=== PATIENT | female | born 1965 | race Caucasian/White ===

== ENCOUNTER 2019-02-22 09:35 | Inpatient (IN) ==
[2019-02-22] MEDS ORDERED: ZOFRAN IV ONE (10:02)
[2019-02-22] MEDS ORDERED: MORPHINE IV ONE (10:02)
[2019-02-22] MEDS ORDERED: NS 1,000 ML IV ONE ×2 (10:02→13:41)
[2019-02-22] MEDS ORDERED: BENTYL IM ONE (10:02)
--- NOTE | 2019-02-22 10:09 | PROVIDER DOCUMENTATION ---
HPI-Abdominal Pain/GI Problem - General Chief Complaint: Abdominal Pain Stated Complaint: LT SIDE PAIN,DRY HEAVEING Time Seen by Provider: 02/22/19 09:43 Source: patient Allergies/Adverse Reactions: Patient Allergies Allergy/AdvReac Type Severity Reaction Status Date / Time No Known Allergies Allergy Verified 02/22/19 10:00 Home Medications: Home Medication List Medication Instructions Recorded Confirmed Last Taken Type NK [No Home Medications] 02/22/19 02/22/19 Unknown History - History of Present Illness-ABD Nature of Presenting Problems: Patient is a 53 yowf who complains of intermittent LUQ pain associated with n/v x 2 weeks that became constant 3 days ago. Emesis x 1 today. Denies fever, melena, diarrhea, or any other symptoms. She is non-toxic in appearance. Review of Systems - Adult - REVIEW OF SYSTEMS - ADULT Constitutional: reports: no symptoms reported. denies: chills, fever Eyes: reports: no symptoms reported Ears, Nose, Mouth & Throat: reports: no symptoms reported Cardiovascular: reports: no symptoms reported Respiratory: reports: no symptoms reported Gastrointestinal: reports: see HPI, abdominal pain, nausea, vomiting. denies: diarrhea, rectal bleeding Genitourinary: reports: no symptoms reported Musculoskeletal: reports: no symptoms reported Integumentary: reports: no symptoms reported Neurological: reports: no symptoms reported Psychiatric: reports: no symptoms reported Endocrine: reports: no symptoms reported Hematologic/Lymphatic: reports: no symptoms reported Allergic/Immunologic: reports: no symptoms reported All Other Systems: Reviewed and Negative Past History - Adult - PAST MEDICAL HISTORY-ADULT Review of Records: reports: Nursing Assessment Review, Medications Reviewed, Social history reviewed & non-contributory. Major Childhood Illnesses: reports: denies history Cardiovascular: reports: denies history Respiratory: reports: denies history Gastrointestinal: reports: denies history Obstetrical/Gynecological: reports: denies history Genitourinary: reports: denies history Musculoskeletal: reports: denies history Neurological: reports: denies history Psychiatric: reports: denies history Endocrine/Immune: reports: denies history Other Conditions: reports: denies history - PRIOR SURGERIES/PROCEDURES Surgical/Procedure History: reports: appendectomy - FAMILY HISTORY Family History: reviewed, not pertinent - SOCIAL HISTORY Smoking: cigarettes, greater than 1 pack/day Alcohol Use Frequency: occasionally Physical Exam-General - PHYSICAL EXAM-ADULT Initial Vital Signs Reviewed: Yes - CONSTITUTIONAL General Appearance: alert, no apparent distress. negative: lethargic, slow to respond - EYES Eyes: PERRL/EOMI, pink conjunctivae - HEAD, EARS, NOSE, MOUTH & THROAT HENMT: normocephalic/atraumatic, moist mucous membranes - NECK Neck: full range of motion, supple, normal inspection - RESPIRATORY Respiratory: chest non-tender, lungs clear, normal breath sounds, no pleuratic chest pain, no respiratory distress, no accessory muscle use - CARDIOVASCULAR Cardiovascular: normal peripheral pulses, regular rate, rhythm, no gallop, no murmur - GASTROINTESTINAL (ABDOMEN) Abdominal Exam: normal bowel sounds, soft, no organomegaly, no pulsatile mass, tenderness (RUQ, epigastric region, LUQ). negative: distended, guarding, rigid, rebound, hernia, mass - MUSCULOSKELETAL Back Exam: normal inspection, no CVA tenderness Extremity: normal range of motion, non-tender, normal gait, normal inspection - SKIN Integumentary: normal color, warm/dry. negative: cyanosis, diaphoresis, jaundice, mottled, pallor - NEUROLOGIC Neurologic: grossly normal, no motor/sensory deficits - PSYCHIATRIC Psych/Mental Status: normal mood/affect, normal thought content, normal thought process, oriented x 3 Progress - PLAN OF CARE/RESULTS Progress/Plan/Lab Results: Vital Signs - 8 hr 02/22/19 09:38 Temperature 98.1 F Pulse Rate 89 Respiratory Rate 19 Blood Pressure 182/87 O2 Sat by Pulse Oximetry 98 Orders Category Date Time Status Nursing- Obtain EKG ONCE Care 02/22/19 10:02 Active AMYLASE [CHEM] Stat Lab 02/22/19 10:02 Uncollected CBC WITH DIFF [HEME] Stat Lab 02/22/19 10:02 Ordered COMPREHENSIVE METABOLIC PANEL [CHEM] Stat Lab 02/22/19 10:02 Uncollected LIPASE [CHEM] Stat Lab 02/22/19 10:02 Uncollected TROPONIN T Stat Lab 02/22/19 10:02 Ordered UA NIMS W/REFLEX CULT [URINALYSIS] Stat Lab 02/22/19 10:04 Uncollected 0.9% Sodium Chloride Inj [Ns] 1,000 ml Med 02/22/19 10:02 Active IV 999 mls/hr Dicyclomine [Bentyl] Med 02/22/19 10:02 Discontinued 20 mg IM NOW ONE Morphine Med 02/22/19 10:02 Discontinued 4 mg IV NOW ONE Ondansetron [Zofran] Med 02/22/19 10:02 Discontinued 4 mg IV NOW ONE EKG [EKG] Stat Ther 02/22/19 10:02 Ordered 1340- Dr. Mandel paged. 1418- Dr. Mandel re-paged. 1435- Spoke with staff member at Dr. Mandel's office who took message and states he is with a pt in clinic and will call back. 1645- Charge nurse aware that I have not heard back from Dr. Mandel. Discussed case with Dr. Qulies who does not recommend admission to [facility] since pt is otherwise healthy and not on any home medications, will await phone call. Pt denies any needs at this time and states pain is controlled. She is in agreement with admission plan. 1750- Admitting [facility] paged. Result Diagrams: 02/22/19 10:35 02/22/19 10:35 - CT/MRI 1 CT Study: Abdomen, Pelvis (IMPRESSION: 1.Outpouching at the posterior aspect of the duodenal bulb with mild inflammatory stranding and adjacent mild lymphadenopathy. A perforated walled off duodenal ulcer cannot be excluded. Please see the above discussion. 2.Prominent distention of the urinary bladder with mild prominence of the ureters and a slightly prominent right renal pelvis. Correlate clinically to exclude urinary stasis. 3.Other incidental/nonacute findings detailed above. Electronically signed by Rachid Garcia 02/22/2019 1:04 PM) - CONSULTS/PCP/HOSPITALIST Notification #1 *Consult/PCP/Hospitalist*: Dr. Mandel Time Discussed: 17:49 Reason/Comments: duodenal ulcer- possible perforated Consult Disposition: other ([employer] Reliner states he already saw pt in the ED. States to admit to [facility], keep pt NPO, place on PPI drip and Zosyn and he will perform an upper GI tomorrow.) #2 Consult: HEIDY Campoevrde [employer]W OPERATOR Time Discussed: 18:04 Reason/Comments: LUQ pain, duodenal ulcer Consult Disposition: Admit Departure - Departure Date of Disposition Decision: 02/22/19 Time of Disposition Decision: 13:00 DIAGNOSIS: Abdominal pain Qualifiers: Abdominal location: left upper quadrant Qualified Code(s): R10.12 - Left upper quadrant pain Disposition: ADMITTED INPATIENT 09 Certified Medical Emergency: Emergent Condition: Stable Referrals and Follow-Ups: None,PCP [Primary Care Provider] - - Critical Care Note This patient required my direct & personal management of CC.: No Attestation - Physician/ HAYDE Attestation Patient care was provided by Advanced Practice Provider:: Yes Advanced Practice Provider:: Allison Florence Advanced Practice Provider documentation review:: The Mid-level provider documentation, treatment plan and medical decision making was reviewed by the physician who agrees with all treatment and medical decision making by the MLP. The physician spent face to face time with patient:: No Advanced Practice Provider documentation review:: Supervising physician onsite and consulted in the evaluation and care of this patient. The physician did not have a face to face encounter with the patient.
--- NOTE | 2019-02-22 10:17 | EKG Report ---
Test Performed on : 02/22/2019 10:12:57 AM Test Reason : LUQ pain Blood Pressure : / mmHG Vent. Rate : 082 BPM Atrial Rate : 082 BPM P-R Int : 128 ms QRS Dur : 084 ms QT Int : 382 ms P-R-T Axes : 035 077 056 degrees QTc Int : 446 ms Normal sinus rhythm. Normal ECG No previous ECGs available Unconfirmed Result
[2019-02-22 10:22] LABS: URINE SOURCE CLEAN CATCH
[2019-02-22 10:29] LABS: BILIRUBIN URINE NEGATIVE (NEGATIVE); BLOOD URINE TRACE (NEGATIVE); COLOR YELLOW; GLUCOSE URINE NEGATIVE (NEGATIVE); KETONE URINE NEGATIVE (NEGATIVE); LEUKOCYTES URINE NEGATIVE (NEGATIVE); NITRITE URINE NEGATIVE (NEGATIVE); PH URINE 5.5; PROTEIN URINE TRACE mg/dL (NEGATIVE); SP GRAVITY URINE 1.015; TURBIDITY URINE CLEAR (CLEAR); UR EPITHELIAL CELLS <10 /HPF (<10); URINE BACTERIA NEGATIVE /HPF; URINE RBC <10 /HPF (<10); URINE WBC <10 /HPF (<10); UROBILINOGEN URINE NORMAL (NORMAL)
[2019-02-22 10:48] LABS: BASO# 0.03 X1000 (0.0-0.2); BASO% 0.3 % (0.0-0.8); EOS% 1.7 % (0.0-10.0); HEMATOCRIT 41.7 % (37.0-47.0); HEMOGLOBIN 13.9 g/dL (12.0-16.0); IMM GRAN# 0.03 X1000 (0.0-0.04); IMM GRAN% 0.3 % (0.0-0.5); LYMPH% 21.2 % (20.5-51.1); MCH 31.5 PG (27-31); MCHC 33.3 g/dL (33-37); MCV 94.6 FL (81-99); MONO# 0.47 X1000 (0.11-0.59); MPV 9.3 FL (7.4-10.4); NEUT# 8.59 X1000 (1.4-6.5); NEUT% 72.5 % (42.2-75.2); PLT 493 X1000 (130-400); RBC 4.41 XMIL (4.2-5.4); RDW 13.1 % (11.5-14.5); WBC 11.82 X1000 (4.8-10.8)
[2019-02-22 11:22] LABS: AGAP 15; ALB/GLOB RATIO 1.3; ALBUMIN 4.5 g/dL (3.5-5.0); ALKALINE PHOSPHATASE 114 U/L (32-104); AMYLASE 46 U/L (20-200); BUN 11 mg/dL (8-22); CALCIUM 9.6 mg/dL (8.8-10.2); CHLORIDE 97 mmol/L (98-107); COSMO 272; CREATININE 0.5 mg/dL (0.5-0.9); ESTIMATED GFR > 60; GLUCOSE 105 mg/dL (70-104); GOT 14 U/L (10-30); GPT 10 U/L (10-36); LIPASE 29 U/L (13-60); POTASSIUM 3.6 mmol/L (3.5-5.1); SODIUM 136 mmol/L (136-145); TCO2 24 mmol/L (25-35); TOTAL BILIRUBIN 0.26 mg/dL (0.20-1.00); TOTAL PROTEIN 8.1 g/dL (6.3-8.3)
--- NOTE | 2019-02-22 13:06 | Diag Imaging Result Doc PS360 ---
EXAM: CT ABD/PELVIS W/IV CONT ONLY INDICATION: upper abd pain/tenderness TECHNIQUE: This exam was performed using automated exposure control, adjustment of mA or kV according to patient size, and/or use of iterative reconstruction technique. COMPARISON: None. FINDINGS: There is mild subsegmental atelectasis and/or scarring at the lung bases. The liver, gallbladder, spleen, and adrenal glands are unremarkable. There is prominent distention of the urinary bladder. There is no urinary bladder wall thickening. Correlate clinically for urinary stasis. Both ureters are slightly prominent. The right renal pelvis is slightly more prominent than the left. This may be chronic, however. The kidneys are unremarkable, otherwise. The reproductive tract is grossly unremarkable as imaged. At the posterior aspect of the duodenal bulb, there is an outpouching measuring 2.8 x 1.8 cm axially. It contains air and fluid. Although this may represent a duodenal diverticulum, there is mild inflammatory stranding around this region. A perforated walled off duodenal ulcer cannot be excluded. Although some of this inflammation is adjacent to the nearby head of the pancreas, it does appear to be emanating from this outpouching at the duodenal bulb. Nonetheless, correlate with serum amylase and lipase to completely exclude pancreatitis. No large volume free abdominal gas is appreciated. There is also mild adjacent mesenteric lymphadenopathy that is probably reactive. The largest node measures up to 2.0 x 1.4 cm axially. The bones are osteopenic and somewhat heterogeneous, nonspecific. This is probably related to the osteopenia. There is mild chronic appearing height loss at L4. IMPRESSION: 1.Outpouching at the posterior aspect of the duodenal bulb with mild inflammatory stranding and adjacent mild lymphadenopathy. A perforated walled off duodenal ulcer cannot be excluded. Please see the above discussion. 2.Prominent distention of the urinary bladder with mild prominence of the ureters and a slightly prominent right renal pelvis. Correlate clinically to exclude urinary stasis. 3.Other incidental/nonacute findings detailed above. Electronically signed by Rachid Garcia 02/22/2019 1:04 PM
[2019-02-22] MEDS ORDERED: PROTONIX IV ONE (13:40)
[2019-02-22] MEDS ORDERED: SODIUM CHLORIDE 0.9% INJ ONE (13:41)
[2019-02-22] MEDS ORDERED: APRESOLINE IV ONE (13:41)
[2019-02-22] MEDS ORDERED: ZOSYN 3.375 GM in NS 50 ML IV ONE (13:41)
--- NOTE | 2019-02-22 13:59 | ED EKG INTERP ---
This chart was entered by Mary Carmen Feliciano Scribe, acting as scribe for Yassine Quiles MD. EKG Interpretation - EKG Time of EKG reading by physician:: 10:15 EKG Read and Signed by:: Yassine Quiles EKG Interpretation (*Must complete 3 of following elements*): Normal Rate: 82 Rhythm: normal sinus QRS: normal TX Interval: normal Attestation - Physician/ HAYDE Attestation Patient care was provided by Advanced Practice Provider:: No The physician spent face to face time with patient:: Yes Advanced Practice Provider documentation review:: Supervising physician onsite and consulted in the evaluation and care of this patient. The physician did have a face to face encounter with the patient. This chart was documented by the indicated scribe, (Mary Carmen Feliciano Scribe) and accurately reflects the services I performed and decisions made by me, Yassine Quiles MD, as attested by the provider's signature.
[2019-02-22] MEDS ORDERED: NICODERM PATCH TD ONE (17:31)
[2019-02-22] MEDS ORDERED: NEXIUM 80 MG in NS 90 ML IV SCH (18:00)
[2019-02-22] MEDS ORDERED: ZOFRAN IV PRN (18:34)
[2019-02-22] MEDS ORDERED: PROTONIX IV SCH (18:45)
--- NOTE | 2019-02-22 19:51 | HISTORY AND PHYSICAL ---
PRIMARY CARE PHYSICIAN: None. PRESENTING COMPLAINT: Abdominal pain. HISTORY OF PRESENTING COMPLAINT: Ms. Green is a 53-year-old female who seems to be in apparent good health except for general body pains, for which she takes daily Aleve early in the morning. She has been doing that for a very long time. Anyway, since about 2 weeks ago, she has been complaining of this epigastric pain that comes on and off, gets a little worse when she is hungry. She has also seen that milk products kind of make it slightly worse. Anyway, since yesterday, she had this acute onset of worsening of the underlying pain. It was associated with some nausea and vomiting. She did not seem to get relief even taking her Aleve, and she actually realized that the Aleve probably was making it worse. In any case, she did not go for any medical attention until this morning when she had more worsening of the pain, so she came in and was evaluated. A CT scan of the abdomen and pelvis is concerning for a duodenal bulb inflammation with stranding, concerning for possible perforated wall of duodenal ulcer. PAST MEDICAL HISTORY: Unremarkable. FAMILY HISTORY: Unremarkable. ALLERGIES: None. SOCIAL HISTORY: Patient lives by herself. 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 She has more than 30 pack year history. Still smokes about a pack a day and occasionally takes alcohol. She denies any recreational drug use or any prescription drug use. REVIEW OF SYSTEMS: A 14 point review of systems conducted with Ms. Green is unremarkable except for what we have in the HPI. Specifically, Ms. Green denies any chest pain, shortness of breath, or any diarrhea. PHYSICAL EXAMINATION: CURRENT VITAL SIGNS: Blood pressure is 166/75, pulse of 68, respiration is 18, temperature is 97.8 degrees. Patient is saturating 98% on room air. GENERAL: Ms. Green is a 53-year-old female. She is in bed in no distress. HEENT: Mucosa is pink and moist. Anicteric. Acyanotic. Head is normocephalic and atraumatic. NECK: Supple. There is no JVD. No carotid bruit. Trachea is midline. No thyromegaly. RESPIRATORY: There is good air entry bilateral. A few distant wheezing, but no crackles. No rhonchi. No accessory muscle use. CARDIOVASCULAR: Regular rate and rhythm. There are no murmurs, no rubs, no gallops. [place] beat is at 5th intercostal space, midclavicular line. GI: Abdomen is soft. It is tender in the epigastrium to the left upper quadrant, but there is no rebound or guarding. No hepatosplenomegaly felt and no fluid thrill. Inguinal region is unremarkable. : Not examined. EXTREMITIES: No pedal edema and distal pulses are present. SPORTS ACTIVITIES FOUL JUDGE: Patient is awake, alert, oriented x4. There is no focal neurological deficit. Cranial nerves 2 through 12 have been grossly examined and they are unremarkable. Sensation is intact in all extremities. Motor is 5/5 and reflexes are normal. PSYCH: The patient is very cooperative, has good understanding, judgment, and insight. LABORATORY DATA: WBC is 11.82, hemoglobin is 13.9, platelet count of 493,000. Chemistry is also reviewed and unremarkable. Lipase is 29. IMAGING DATA: A CT scan of the abdomen and pelvis shows an outpouching at the posterior aspect of the duodenal bulb with mild inflammatory stranding with adjacent lymphadenopathy. There is a prominent distention of the urinary bladder with prominence of the ureters and slightly prominent right renal pelvis. Correlate with urine stasis. The patient's urinalysis, however, was unremarkable. ASSESSMENT: Ms. Green is a 53-year-old female, who takes Aleve on a daily basis, comes in with epigastric pain which has been getting worse for the past [address] scan is showing possibility of a perforated wall of duodenal ulcer. 1. Epigastric pain, in patient on chronic nonsteroidal anti-inflammatory medication use. CT scan concerning for perforated wall of duodenal ulcer with surrounding inflammatory stranding. Patient is currently on intravenous antibiotics. We are going to continue with the proton pump inhibitor, avoid any nonsteroidal anti-inflammatory medications, and consult both Surgery and GI. 2. Clinical volume depletion. Will continue with intravenous fluids. 3. Tobacco abuse. Patient has been counseled. 4. Elevated blood pressure, most likely secondary to pain. Patient does not have any history of blood pressure. We are going to be keeping eye on this as well. PLAN: 1. For today, we will keep Ms. Green n.p.o., admit her to the medical floor, adequately fluid resuscitate, and put her on maintenance fluids, twice daily proton pump inhibitor, and antibiotics. 2. We will consult GI as well as Surgery. 3. I have explained my findings and the plan to Ms. Green and her daughter, who was at the bedside at the time of the encounter. They both voiced understanding. All questions and concerns have been addressed. 4. Ms Green is Full Code. cc: Jono Keene MD
--- NOTE | 2019-02-22 20:25 | GENERAL SURGERY CONSULTATION ---
DATE: 02/22/2019 HISTORY OF PRESENT ILLNESS: This is a 53-year-old female with chronic musculoskeletal pain, who presents with left upper quadrant abdominal discomfort. She said that this has been intermittent, but over the last couple weeks, but it has worsened over the course of the day today. She has had some vomiting which she describes as nonbloody. Bowel function has been normal. She has never had any endoscopic evaluation. She takes Aleve daily and ibuprofen as needed for pain. MEDICAL HISTORY: Negative. FAMILY HISTORY: Negative. SURGICAL HISTORY: No abdominal operations. SOCIAL HISTORY: She does smoke a pack a day for 30 years. Occasional alcohol. No drugs. Lives by herself. REVIEW OF SYSTEMS: Ten point negative. OBJECTIVE: General: She is afebrile. Pulse 71, blood pressure 133/89. Oxygen saturation 98%. General: She is alert, in no acute distress. HEENT: No scleral icterus. No cervical mass. Cardiovascular: Normal rate. Pulmonary: No increased work of breathing. Abdomen: Soft, nontender, nondistended. Integument: Warm and dry, without jaundice. Psychiatric: Appropriate affect. Neurologic: No gross deficits. Peripheral Vascular: No lower extremity edema. Lymphatic: No cervical, axillary or inguinal adenopathy. LABORATORY: White count 11, hematocrit 41, platelets 493,000. Creatinine 0.5. LFTs are normal. Mild elevation in alkaline phosphatase; amylase, lipase normal. Trace blood in her urine. CT scan shows possible air-fluid containing collection posterior to the distal stomach adjacent to the duodenum and retroperitoneum. There is minimal if any stranding here. No evidence of a pancreatic mass. There is no free air. No free fluid. ASSESSMENT AND PLAN: A 53-year-old female with duodenal diverticulum versus less likely a retroperitoneal perforation of peptic ulcer. I discussed these findings with the patient. I have recommended admission for antibiotics, serial exams, n.p.o. and IV hydration. We will plan on getting a water-soluble upper GI study tomorrow to evaluate for extravasation of contained perforation versus diverticulum. She may have uncomplicated diverticulitis of this diverticulum. Either way, we will treat her medically for this. I have also recommended a PPI drip. I have discussed NSAID avoidance and the need for endoscopy in the future. We will follow her going forward. cc: Nasir Mandel MD
[2019-02-22] MEDS: NEXIUM IV SCH (22:33)
[2019-02-22] MEDS: SODIUM CHLORIDE 0.9% INJ SCH (22:33)
[2019-02-22] MEDS: ZOSYN 3.375 GM in NS 50 ML IV SCH (22:33)
[2019-02-23] MEDS: NS 1,000 ML IV SCH ×3 (02:01→13:49)
[2019-02-23] MEDS: ZOSYN 3.375 GM in NS 50 ML IV SCH ×4 (03:21→20:32)
[2019-02-23 06:07] LABS: BASO# 0.03 X1000 (0.0-0.2); BASO% 0.3 % (0.0-0.8); EOS# 0.29 X1000 (0.0-0.7); EOS% 3.3 % (0.0-10.0); HEMATOCRIT 37.1 % (37.0-47.0); HEMOGLOBIN 12.4 g/dL (12.0-16.0); IMM GRAN# 0.02 X1000 (0.0-0.04); IMM GRAN% 0.2 % (0.0-0.5); LYMPH# 2.54 X1000 (1.2-3.4); MCH 32.3 PG (27-31); MCHC 33.4 g/dL (33-37); MCV 96.6 FL (81-99); MONO% 4.6 % (1.7-9.3); MPV 9.2 FL (7.4-10.4); NEUT# 5.49 X1000 (1.4-6.5); NEUT% 62.6 % (42.2-75.2); PLT 436 X1000 (130-400); RBC 3.84 XMIL (4.2-5.4); RDW 13.2 % (11.5-14.5); WBC 8.77 X1000 (4.8-10.8)
[2019-02-23 06:17] LABS: INR 0.98; PROTIME 13.8 Seconds (11.0-16.0)
[2019-02-23 06:29] LABS: AGAP 10; ALBUMIN 3.4 g/dL (3.5-5.0); ALKALINE PHOSPHATASE 92 U/L (32-104); BUN 10 mg/dL (8-22); CALCIUM 8.8 mg/dL (8.8-10.2); CHLORIDE 107 mmol/L (98-107); COSMO 280; CREATININE 0.5 mg/dL (0.5-0.9); ESTIMATED GFR > 60; GLUCOSE 97 mg/dL (70-104); GOT 12 U/L (10-30); GPT 8 U/L (10-36); POTASSIUM 3.9 mmol/L (3.5-5.1); SODIUM 141 mmol/L (136-145); TCO2 24 mmol/L (25-35); TOTAL BILIRUBIN 0.44 mg/dL (0.20-1.00); TOTAL PROTEIN 6.7 g/dL (6.3-8.3)
--- NOTE | 2019-02-23 09:59 | Diag Imaging Result Doc PS360 ---
GI SERIES WITH BA SWALLOW - 02/23/2019 INDICATION: contained perf vs diverticulum TECHNIQUE: COMPARISON: CT 02/22/2019 FINDINGS: There is a normal swallowing mechanism. During later phases of swallowing, there is moderate spasm throughout the lower esophagus compatible with presbyesophagus. No strictures or delay in clearance of the esophagus. At the duodenal bulb, there is a posterior contained smooth wall diverticulum. This is consistent with a contained area visible on the prior CT. There is no irregularity or evidence of contrast leak. No free air. IMPRESSION: 1. Benign-appearing diverticulum of the posterior duodenal bulb. Although it is possible this is a contained perforation, the wall and contour is extremely smooth. 2. Mild to moderate presbyesophagus. Electronically signed by Vinay Alex 02/23/2019 9:56 AM
[2019-02-23] MEDS: NEXIUM IV SCH ×2 (10:14→20:32)
[2019-02-23] MEDS ORDERED: LABETALOL IV PRN (10:37)
--- NOTE | 2019-02-23 11:00 | PROGRESS NOTE ---
DATE: 02/23/2019 SUBJECTIVE: This morning, Ms. Green refers to be doing a lot better. Still has epigastric pain but not as before. She just finished doing her upper GI series. OBJECTIVE: Vital Signs: Blood pressure is 144/60, pulse of 68, respirations are 18, temperature is 98.2 degrees. General Examination: Ms. Green is a 53-year-old, female. She is in bed. No distress. HEENT: Mucosa is pink and moist. Anicteric. Acyanotic. Neck: Supple. Chest: Good air entry bilaterally. There were no crepitations, no rhonchi. Cardiovascular: Regular rate and rhythm. Abdomen: Soft. Minimally tender in the epigastrium to the right upper quadrant but no rebound, no guarding. CAFETERIA ASSISTANT: The patient is awake, alert, oriented. There is no focal neurological deficit. Laboratory Data: WBC is 8.77, hemoglobin is 12.4, platelet count of 436,000. Chemistry is also reviewed, which is completely normal. The patient's current medications have all been reviewed. The GI upper series seems to suggest a benign-appearing diverticulum in the posterior duodenal bulb, although a contained perforation is possible but it seems to be less likely. ASSESSMENT: 1. Epigastric pain, suspected to be duodenal bulb diverticulum diverticulitis versus a well- contained perforated ulcer. The patient has been evaluated by surgery, recommending at this point medical management and we are pending gastroenterology final recommendations as well. 2. Clinical volume depletion, improved. 3. Tobacco abuse. Patient has been counseled. 4. Hypertension, noted. We will start the patient on antihypertensive medications once we start utilizing the enteral route. 5. Chronic nonsteroidal anti-inflammatory medication use. The patient has been counseled. PLAN: In general, Ms. Green seems to be doing well. A small-bowel series does not seem to suggest an obvious perforation. We will be pending GI for possible upper endoscopy. cc: Jono Keene MD
--- NOTE | 2019-02-23 11:59 | GENERAL SURGERY PROGRESS NOTE ---
DATE: 02/23/2019 SUBJECTIVE: The patient feels well. No fevers. No tachycardia. No vomiting. Overnight, her abdominal pain is resolved. OBJECTIVE: Blood pressure 144/61. General: She is alert. Cardiovascular: Normal rate. Abdomen: Soft, nontender, nondistended. White count 4.8, hematocrit 37. Creatinine 0.5. She had an upper GI study this morning that shows a smooth wall diverticulum posterior aspect of the duodenum. ASSESSMENT AND PLAN: This is a 53-year-old female admitted with abdominal pain. Her studies today suggest a benign diverticulum without evidence of perforation. It is possible she has some associated diverticulitis associated with this. She ultimately will need EGD. I would continue for the most part bowel rest, IV antibiotics, and PPI for now, but we could begin to slowly advance her diet over the next 24 hours. cc: Nasir Mandel MD
--- NOTE | 2019-02-23 14:02 | GASTROENTEROLOGY CONSULTATION ---
DATE: 02/23/2019 REASON FOR CONSULTATION: Abdominal pain. HISTORY OF PRESENT ILLNESS: This is a 53-year-old female who comes in with complaints of progressive abdominal pain. 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 She does not have a primary physician. She has no reported medical problems. She reports progressive pain over the last several weeks. She had several episodes of vomiting. She noticed on Friday when she ate some ice cream that it made her abdominal pain worse. She has been taking NSAIDs on a daily basis for several years for general arthritis pain. She states she usually takes Aleve in the morning and then takes additional ibuprofen if needed. She has denied any visible blood in the stool or black stools. No reported constipation or diarrhea. As noted, she has never had an EGD or colonoscopy. On CT evaluation, patient had findings of outpouching at the posterior aspect of the duodenal bulb with inflammatory stranding and mild lymphadenopathy. A perforated walled-off duodenal ulcer could not be excluded. Also prominent distention of the urinary bladder with slightly prominent right renal pelvis. Patient has been seen by [facility] and upper GI series was ordered. Findings showed benign-appearing diverticulum of the posterior duodenal bulb although possible of contained perforation. The wall and contour was smooth. Also noted mild to moderate presbyesophagus. Patient has been seen by Dr. Mandel with [facility]. PAST MEDICAL HISTORY: None reported. PAST SURGICAL HISTORY: Appendectomy at age 16. ALLERGIES: No known drug allergies. HOME MEDICATIONS: None. SOCIAL HISTORY: She lives alone. She smokes a pack of cigarettes daily and occasional alcohol. No reported drug use. REVIEW OF SYSTEMS: Per history of present illness. PHYSICAL EXAMINATION: Vital Signs: Temperature 98.2 degrees, pulse 68, respirations 18, blood pressure 144/60. General: Patient is awake and alert, in no acute distress. HEENT: Normocephalic, atraumatic. Pupils equal, round, reactive to light. Sclerae are nonicteric. Respiratory: Lung sounds clear bilaterally. Cardiovascular: Regular rate and rhythm. Abdomen: Soft. Some tenderness in the upper abdomen. Otherwise soft with positive bowel sounds. Neurologic: Cranial nerves 2-12 grossly intact. Patient is awake and alert, oriented to person, place, and time. Extremities: No lower extremity edema noted. LABORATORY DATA: Hematology: WBC 8.77, hemoglobin 12.4, hematocrit 37.1, MCH 96.6, platelets 436,000. Coagulation: Protime 13.8, INR 0.98. Chemistry: Sodium 141, potassium 3.9, chloride 107, CO2 24, BUN 10, creatinine 0.5, glucose 97, calcium 8.8. Total bilirubin 0.44, AST 12, ALT 8, alkaline phosphatase 92, albumin 3.4, amylase 46, lipase 29. TSH 4.01. IMAGING STUDIES: As mentioned in history of present illness. ASSESSMENT: 1. Abdominal pain. 2. Abnormal CT scan. Possibility of diverticulum versus duodenal ulcer. 3. Chronic NSAID use. PLAN: Continue symptomatic treatment. Continue PPI. Recommend patient avoid NSAID use. We will proceed with an EGD when schedule allows. This will most likely be done on Friday. Further plans will be made according to findings. I have discussed this case with Dr. Mack. Thank you for this consultation. Dictated by BULMARO Cueto for Hadley Mack MD cc: BULMARO Head MD [facility]
[2019-02-23] MEDS: NICODERM PATCH TD SCH (15:58)
[2019-02-23] MEDS: SODIUM CHLORIDE 0.9% INJ SCH (20:32)
[2019-02-24] MEDS: ZOSYN 3.375 GM in NS 50 ML IV SCH ×4 (03:13→22:31)
--- NOTE | 2019-02-24 09:51 | PROGRESS NOTE ---
DATE: 02/24/2019 SUBJECTIVE: This morning, Ms. Green refers to be doing a lot better. Still has some residual abdominal discomfort but much improved. OBJECTIVE: Vital Signs: Blood pressure is 141/57, pulse of 73, respirations are 16, temperature is 98.5 degrees, the patient is saturating 97% on room air. General Examination: Ms. Green is a 53-year-old, female. She is in bed. No distress. HEENT: Mucosa is pink and moist. Anicteric. Acyanotic. Neck: Supple. Chest: Clear to auscultation. No crepitations. No rhonchi. Cardiovascular: Regular rate and rhythm. No murmurs, no rubs, no gallops. GI: Abdomen is soft. Minimally tender in the epigastrium. No guarding. No rebound. No hepatosplenomegaly. Extremities: No pedal edema. 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 There is no focal neurological deficit. Laboratory Data: Has also been reviewed from yesterday. No new labs for this morning. The patient's current medications have all been reviewed. No changes. ASSESSMENT: 1. Epigastric pain secondary to mild diverticulitis from a duodenal bulb diverticulum versus a well-contained perforated ulcer. The upper gastrointestinal series was unremarkable. There is a plan for an esophagogastroduodenoscopy this morning. 2. Clinical volume depletion, improved. 3. Hypertension, controlled. 4. Tobacco abuse. Patient has been counseled. 5. Chronic nonsteroidal anti-inflammatory medication use. Patient has been counseled. PLAN: In general, I think Ms. Green is doing well. She is pending EGD today. Hopefully, she can be discharged today if there is nothing on the findings that would need her to be in hospital for management. cc: Jono Keene MD [facility]
[2019-02-24] MEDS: NICODERM PATCH TD SCH (10:06)
[2019-02-24] MEDS: NS 1,000 ML IV SCH ×3 (10:06→22:32)
[2019-02-24] MEDS: NEXIUM IV SCH (10:07)
[2019-02-24] MEDS: SODIUM CHLORIDE 0.9% INJ SCH (10:08)
[2019-02-24] MEDS ORDERED: XYLOCAINE-MPF 2% ONE (15:19)
[2019-02-24] MEDS ORDERED: DIPRIVAN 1% ONE ×2 (15:19→16:18)
--- NOTE | 2019-02-24 16:30 | ENDOSCOPY OPERATIVE NOTE ---
[facility] ENDOSCOPY OPERATIVE NOTE , PATIENT: Gail Green ADMISSION DATE: 02/24/2019 [id number] [facility] 1965 [id number] PROCEDURE REPORT PROCEDURE DATE: 02/24/2019 SURGEON: Hadley Mack MD STATUS: inpatient CHOCOLATE PACKER: Merlyn Carrington and Betsey Crisostomo PREOPERATIVE DIAGNOSIS: The patient is a 53 yr old female here for an EGD due to epigastric abdomina l pain and abnormal CT of the GI tract. PROCEDURE PERFORMED: EGD w/ biopsy MEDICATIONS: Per Anesthesia TOPICAL ANESTHETIC: none CONSENT: The patient understands the risks and benefits of the procedure and understands that these r isks include, but are not limited to: sedation, allergic reaction, infection, perforation and/or bleeding. Alternative means of evaluation and treatment include, among others: physical exam, x-rays, and/or surgical intervention. The patient elects to proceed with this endoscopic procedure. HISORY AND PHYSICAL: 02/24/2019 function. Hand hygiene and appropriate measures for infection prevention was taken. After the risks, benefits and alternatives of the procedure were thoroughly explained, Informed consent was verified, confirmed and timeout was successfully executed by the treatment team. The patient was anesthetized with topical anesthesia and the PF11-z69 ([id number]) endoscope was introduced through the mouth and advanced to the second portion of the duoden um. Retroflexion was performed in the stomach and revealed no abnormalities. The gastroscope was then slowly withdraw n and removed. ESOPHAGUS: The mucosa of the esophagus appeared normal. STOMACH: Non-bleeding, round, deep and clean-based ulcer(s) measuring 40 x 50mm in size with heaped u p edges were found at the pylorus. Biopsies were taken at edge of the ulcer. There was no evidence of AVM, tumor or v arices. The stomach otherwise appeared normal. DUODENUM: Pyloric jeanna ulcer extends into the duodenal bulb. There was no evidence of AVM or tumo r. SPECIMENS REMOVED: No ADVERSE EVENTS: There were no complications. POSTOPERATIVE DIAGNOSIS: 1. The mucosa of the esophagus appeared normal 2. Ulcer(s) measuring 40 x 50mm in size were found at the pylorus; biopsies were taken 3. The stomach otherwise appeared normal 4. Pyloric jeanna ulcer extends into the duodenal bulb RECOMMENDATIONS: 1. Resume pre-procedure medications 2. Follow-up biopsy results in 2 weeks 3. Follow up with GI Doctor in 2 months 4. Start Full liquid diet for 2 Day(s) 5. Return to floor when standard parameters are met REPEAT EXAM: Return in 4 months for EGD. Hadley Mack MD eSigned: Hadley Mack MD 02/24/2019 4:29 PM cc: PATIENT NAME: Gail Green MR#: [id number]
--- NOTE | 2019-02-24 19:10 | GENERAL SURGERY PROGRESS NOTE ---
DATE: 02/24/2019 SUBJECTIVE: She is doing okay. No pain. No fevers. No tachycardia. OBJECTIVE: General: On exam, she is alert. Abdomen: Soft, nontender. Cardiovascular: Normal rate. She had an EGD today by Dr. Mack that confirmed a gastric ulcer extending across the pylorus. He took multiple biopsies. ASSESSMENT AND PLAN: We will continue medical management of a gastric ulcer, large, with possible posterior perforation. She is on proton pump inhibitor. We have discussed nonsteroidal anti- inflammatory medication avoidance, and possibly begin advancing her diet over the next [address] John will be covering my patients tomorrow. Otherwise, no plans for emergent surgical intervention. cc: Nasir Mandel MD
[2019-02-24] MEDS: PRILOSEC PO SCH (22:31)
[2019-02-25] MEDS: PRILOSEC PO SCH ×2 (06:35→22:14)
[2019-02-25] MEDS: ZOSYN 3.375 GM in NS 50 ML IV SCH ×4 (06:36→22:15)
--- NOTE | 2019-02-25 06:38 | GENERAL SURGERY PROGRESS NOTE ---
DATE: 02/25/2019 SUBJECTIVE: Patient seems to be doing okay. She is feeling a whole lot better than she did when she came in. OBJECTIVE: Vital Signs: Patient is currently afebrile. Her vital signs are stable. General: No acute distress. HEENT: Normocephalic, atraumatic. Pupils equal, round, reactive to light. Mucous membranes moist. Oropharynx benign. Neck: Supple. Trachea midline. Cardiovascular: Regular rate and rhythm. Lungs: Grossly clear. Abdomen: Soft, nontender, nondistended. Extremities: Moves all extremities. Neurologic: Grossly intact. Skin: No signs of jaundice. Vascular: All extremities perfused. LABORATORY: None this morning as of yet. ASSESSMENT AND PLAN: A 53-year-old female with large gastric ulcer with possible contained perforation. Gastric ulcer. At this time clinically, patient seems to be doing well. Reviewed endoscopy report from Dr. Ramirez from yesterday. At this point agree with current management, keeping her on Prilosec and monitoring as she does need to avoid NSAIDs. Clinically, again, she is doing well so we will hopefully be able to avoid any emergent operation. cc: Elton John MD
[2019-02-25] MEDS: NICODERM PATCH TD SCH (08:40)
[2019-02-25] MEDS: NS 1,000 ML IV SCH (08:41)
--- NOTE | 2019-02-25 10:52 | PROGRESS NOTE ---
DATE: 02/25/2019 SUBJECTIVE: This morning Miss Green refers to be doing a lot better. Still has some residual epigastric pain, but not like before. She is tolerating her full liquid diet as recommended by GI. OBJECTIVE: Vital signs: Blood pressure is 146/66, pulse of 54, respirations 16, temperature is 98.3 degrees, and the patient is saturating 99% on room air. General: Miss Gail Green is a 53-year-old female. She is in bed. No distress. heent: Mucous is pink and moist. Anicteric. Acyanotic. Neck: Supple. Chest: Clear to auscultation. No crepitations. No rhonchi. Cardiovascular: Regular rate and rhythm. No murmurs, no rubs, no gallops. Gastrointestinal: Abdomen is soft. Minimally tender in the epigastrium. No guarding. No rebound. No hepatosplenomegaly. Extremities: No pedal edema. Distal pulses present. CENTRAL NERVOUS SYSTEM: The patient is awake, alert, oriented. There is no focal neurological deficit. LABORATORY WORK: No new lab work for today. STUDIES: Endoscopy report has also been reviewed. It appears the patient did have gastric and duodenal ulcers. Biopsies have been taken. ASSESSMENT: 1. Epigastric pain secondary to peptic ulcer disease. The patient is status post EGD. Biopsies were taken. We are still pending on those results. We will continue with PPI. 2. Clinical volume depletion,resolved. 3. Hypertension, controlled. 4. History of type tobacco abuse. The patient has been counseled. 5. Chronic nonsteroidal anti-inflammatory medication use. The patient has been counseled and never to use that again. So today Miss Green will continue with a full liquid diet. If she continues to tolerate that, we will start her on a gastrointestinal soft diet tomorrow and then get her discharged if it is okay with GI and Surgery. cc: Jono Keene MD
[2019-02-25] MEDS: MORPHINE IV PRN (14:46)
--- NOTE | 2019-02-26 05:34 | GENERAL SURGERY PROGRESS NOTE ---
DATE: 02/26/2019 SUBJECTIVE: Patient seems to be doing okay. She did have a little bit of pain yesterday, but that is otherwise improving. OBJECTIVE: Vital Signs: Patient is currently afebrile. Her vital signs are stable. General: No acute distress. HEENT: Normocephalic, atraumatic. Pupils equal, round, reactive to light. Mucous membranes moist. Oropharynx benign. Neck: Supple. Trachea midline. Cardiovascular: Regular rate and rhythm. Lungs: Grossly clear. Abdomen: Soft, nontender, nondistended. Extremities: Moves all extremities. Neurologic: Grossly intact. Skin: No signs of jaundice. Vascular: All extremities perfused. LABORATORY: None this morning as of yet. ASSESSMENT AND PLAN: A 53-year-old female with large gastric ulcer and possible contained perforation. Gastric ulcer. At this time, patient clinically seems to be doing okay. I am okay with her being advanced to a regular diet. We still need to watch her though, she did have a little bit of abdominal pain, but it has already improved. Will, hopefully, be able to continue nonoperative management and avoid an emergent operation. cc: Elton John MD
[2019-02-26] MEDS: ZOSYN 3.375 GM in NS 50 ML IV SCH ×4 (05:56→22:03)
[2019-02-26] MEDS: PRILOSEC PO SCH ×2 (05:59→22:03)
[2019-02-26] MEDS: NICODERM PATCH TD SCH (08:24)
--- NOTE | 2019-02-26 11:59 | PROGRESS NOTE ---
DATE: 02/26/2019 SUBJECTIVE: This morning Ms. Green refers to be doing well. Still has some mild epigastric pain but otherwise no major complaints. She seems to be tolerating her diet as well. OBJECTIVE: Vital signs: Blood pressure is 126/69, pulse of 74, respiration is 18, temperature 98.8 degrees. General: Ms. Green is a 53-year-old female. She is in bed. No distress. HEENT: Mucosa is pink and moist. Anicteric. Acyanotic. Neck: Supple. Chest: Good air entry bilaterally. There were no crepitations, no rhonchi. Cardiovascular: Regular rate and rhythm. No murmurs, no rubs, no gallops. Gastrointestinal: Abdomen is soft, minimally tender in the epigastrium but no guarding, no rebound. No hepatosplenomegaly. Extremities: No pedal edema. Central nervous system: Patient is awake, alert, oriented. There is no focal neurological deficit. LABORATORY DATA: None for today. So far, blood cultures have been 48 hours negative. Intake and output. The patient has been consuming about 75% of her diet. She did have a bowel movement twice yesterday, none for today. ASSESSMENT: 1. Epigastric pain on presentation secondary to gastroduodenal ulcer with possible contained perforation. The patient seems to be clinically stable. She is on antibiotics. She is tolerating her diet. Surgery recommends to continue watchful waiting. 2. Clinical volume depletion on presentation resolved. 3. Hypertension is controlled. 4. History of tobacco abuse. Patient has been counseled. 5. Chronic nonsteroidal anti-inflammatory medication use. Patient has been counseled on cessation. PLAN: In general, I think Ms. Green continues to be fairly stable. She is on PPI and antibiotics. She is tolerating her diet. We are going to continue following recommendations from Surgery. Plan discharge soon. cc: Jono Keene MD [facility]TDD
[2019-02-26] MEDS: MORPHINE IV PRN (12:17)
--- NOTE | 2019-02-26 13:42 | GASTROENTEROLOGY PROGRESS NOTE ---
DATE: 02/26/2019 SUBJECTIVE: Patient denies complaints. She had a little bit of pain but that has improved. OBJECTIVE: Vital Signs: Temperature 98.8 degrees, pulse 74, respirations 18, blood pressure 126/69. General: Patient is awake and alert, in no acute distress. Abdomen: Soft, currently nontender. Positive bowel sounds. DIAGNOSTIC DATA: EGD on 02/24/2019 showed ulcer measuring 40 x 50 mm at the pylorus, otherwise normal stomach. Pyloric channel ulcer extends into the duodenal bulb. Pathology is pending. ASSESSMENT AND PLAN: 1. Abdominal pain, improved. 2. Pyloric/duodenal ulcer, large. Continue PPI. Avoid NSAIDs. She has tolerated a full liquid diet. We will try advancing her diet for lunch. Further plans to be made according patient's progress. I have discussed this case with Dr. Mack. Dictated by BULMARO Cueto for Hadley Mack MD cc: BULMARO Head MD
[2019-02-27] MEDS: PRILOSEC PO SCH ×2 (05:42→06:02)
[2019-02-27] MEDS: ZOSYN 3.375 GM in NS 50 ML IV SCH (05:43)
[2019-02-27 07:29] VITALS: BP 126/60
--- NOTE | 2019-02-27 09:15 | GENERAL SURGERY PROGRESS NOTE ---
DATE: 02/27/2019 SUBJECTIVE: It is 9 o'clock in the morning. Ms. Green is doing well. She is afebrile, heart rate 65, blood pressure 126/60. Her abdomen is nontender. She has tolerated solid food satisfactorily. Her bowels have moved. Her pathology remains pending. From my perspective, it would be fine for her to be discharged on a PPI and she is to definitely not smoke. She can follow up with Dr. John next week about her pathology. cc: Rohith Gutierres MD
[2019-02-27] MEDS: NICODERM PATCH TD SCH (10:11)
--- NOTE | 2019-02-27 18:35 | DISCHARGE SUMMARY ---
ADMISSION DATE: 02/22/2019 DISCHARGE DATE: 02/27/2019 DISPOSITION: Home. FOLLOWUP: Will be with Dr. Mandel and Dr. Mack. CONSULTATION DURING THIS ADMISSION: Surgery was consulted. Patient was seen by Dr. Mandel. Followed up by Dr. John and Dr. Gutierres. GI was consulted. The patient was seen by Dr. Mack. INVASIVE PROCEDURES DONE DURING THIS ADMISSION: An EGD was initially done which showed gastric ulcers as well as duodenal ulcers. ADMISSION DIAGNOSES: 1. Epigastric pain. 2. Clinical volume depletion. 3. Tobacco use. 4. Elevated blood pressure. DIAGNOSES AT THE TIME OF DISCHARGE: 1. Epigastric pain on presentation secondary to gastric duodenal ulcer with possible contained perforation. 2. Clinical volume depletion. 3. Hypertension, controlled. 4. History of tobacco abuse. 5. Chronic nonsteroidal anti-inflammatory medication use. PATHOLOGY: At the time of discharge, pathology report was still pending. IMAGING STUDIES OF SIGNIFICANCE: A CT scan of the abdomen and pelvis showed outpouching at the posterior aspect of the duodenal bulb with mild inflammatory stranding with adjacent mild lymphadenopathy. There is a prominent distention of the urinary bladder. A small bowel showed benign-appearing diverticula of the posterior duodenal ball that was mild by esophagus. DISCHARGE MEDICATIONS: Amoxiclav 875 one tablet b.i.d. and omeprazole 40 mg p.o. b.i.d. PRESENTING COMPLAINT: Abdominal pain. HISTORY OF PRESENT COMPLAINT: Miss Green is a 53-year-old female with unremarkable medical history who came in because of epigastric discomfort. Of note, the patient takes a lot of Aleve for just generalized pains. Has been complaining of this epigastric pain for a couple weeks. Presented to the emergency department and was evaluated. A CT scan of the abdomen did reveal some concerning features in the duodenum. The patient was admitted for suspicions of perforated duodenal ulcer. HOSPITAL COURSE: Miss Green was initially admitted to the surgical floor, was kept NPO, and was started on IV PPI and other pain control management. Surgery and GI were consulted. During the hospital course, the patient was evaluated by Surgery. Decision was made to do watchful waiting and medical management. GI was also consulted. EGD was done which revealed some gastric duodenal ulcers. Biopsies were taken. The patient was transitioned from IV Protonix to p.o. omeprazole. During the hospital course, Miss Green continues to improve. Her pain got stabilized. She was started on regular diet which she tolerated 2 days in a row. This morning she feels a lot better. She has been evaluated by Surgery. They are okay for her to be discharged. She has been advised to follow up with Dr. Mack in about a week to follow up with the pathology report on the EGD samples. All the discharge instructions have been discussed with Miss Green. The daughter was at the bedside at the time of this encounter and they all voiced understanding. PHYSICAL EXAMINATION Vitals at The time of discharge: Blood pressure is 126/60, pulse is 65, respiration is 16, temperature is 97.9 degrees. The patient was saturating 99% on room air. abdomen: Her physical exam is unremarkable except for mild tenderness in the epigastric area, but otherwise physical exam was unremarkable. TIME SPENT FOR DISCHARGE: 35 minutes. cc: MD Nasir Thompson MD Khurshid Yousuf, MD
== END 2019-02-27 12:01 | disposition home or self-care (01) | DRG 382 ==
LOC: ED 09:35 → 4N 19:32
PROVIDERS: ATTEND Internal Medicine
CPT/HCPCS: 74177; 74246; 80053; 81001; 82150; 83690; 84443; 84484; 85025; 85610; 87040; 88305; 88312; 93005; 96361; 96365; 96372; 96375; 99285; A9270; C9113; J0360; J0500; J2270; J2405; J2543; J7030; Q9966; Q9967; S0164